=== PATIENT | male | born 1950 | race Hispanic/Latino ===

== ENCOUNTER 2017-10-24 09:28 | Emergency (ER) | payer MEDICARE, MEDICAID ==
[~2017-10-24] VITALS: Ht 157.5 cm; Wt 70.0 kg
[~2017-10-24 09:28] MED LIST: AMOXICILLIN500 MG OR; CIPROFLOXACN500 MG PO; DILAUDID 2MG2 MG/TA1 PO; DILAUDID 2MG2 MG/TAB PO; FLOMAX0.4 M1 PO; HYTRIN2 MG PO; KEFLEX250 MG PO; LORTAB 5/3255 MG PO; MIRALAX3350 NF PO; NO HOME MEDS; PHOSLO667 M1 PO; PROCARDIA XL90 MG PO; RENA-VIT1 PO; RENAL PO; SALINE NASAL0.65 %; TESSALON PER100 MG PO; VITAMIN D2000 UNI1 PO; ZOFRAN ODT4 MG PO; ZPAK PO
[2017-10-24] MEDS ORDERED: RENVELA2.4 GM PO (09:56)
[2017-10-24] MEDS ORDERED: SENSIPAR30 MG PO (09:57)
[2017-10-24 10:11] LABS: HEMATOCRIT 35.8 % (39.0-50.0); HEMOGLOBIN 12.3 g/dl (14.0-18.0); IMMATURE GRANULOCYTES 0.7 % (0.0-5.0); MEAN CORPUSCULAR HGB 31.9 pG CALC (26.0-32.0); MEAN CORPUSCULAR HGB CONC 34.4 g/L CALC (32.0-36.0); NEUT# 3.94 thou/uL (1.82-7.42); RED BLOOD COUNT 3.85 mill/uL (4.70-6.10); RED CELL DISTRI WIDTH 12.7 % (11.5-15.5)
[2017-10-24 10:19] LABS: ALBUMIN 4.2 g/dL (3.2-5.0); ALKALINE PHOSPHATASE 73 u/l (38-126); ANION GAP 19 (6-22 (CALC)); BILIRUBIN, TOTAL 0.9 mg/dL (0.0-1.4); BUN 34 mg/dL (8-23); CARBON DIOXIDE 25 mmol/l (22-30); CHLORIDE 99 mmol/l (95-108); SGOT/AST 12 u/l (19-48); SGPT/ALT 17 u/l (11-66); SODIUM 138 mmol/l (137-146)
[2017-10-24 10:27] LABS: BUN/CREATININE RATIO 4 (12-20 (CALC)); CREATININE 7.6 mg/dL (0.7-1.3); GFR 7 ML/MIN (>=60 (CALC)); GFR FOR AFR.AMER. 9 ML/MIN (>=60 (CALC)); POTASSIUM 4.8 mmol/l (3.5-5.1)
[2017-10-24 10:38] LABS: MYOGLOBIN 133 ng/mL (0 - 121)
[2017-10-24] MEDS ORDERED: ZOFRAN ODT4 MG PO (10:50)
[2017-10-24] MEDS ORDERED: ANTIVERT PO (10:50)
[2017-10-24 10:59] VITALS: BP 143/65
== END 2017-10-24 11:10 | disposition home or self-care (01) ==
LOC: ED 09:28
PROVIDERS: Emergency Medicine
DX: R42 Dizziness and giddiness (principal); R00.1 Bradycardia, unspecified; I12.0 Hypertensive chronic kidney disease with stage 5 chronic kidney disease or end stage renal disease; N18.6 End stage renal disease; Z99.2 Dependence on renal dialysis

== ENCOUNTER 2018-04-05 08:58 | Emergency (ER) | payer MEDICARE, MEDICAID ==
[~2018-04-05] VITALS: Ht 157.5 cm; Wt 70.0 kg
[~2018-04-05 08:58] MED LIST changes: +ANTIVERT PO; +RENVELA2.4 GM PO; +SENSIPAR30 MG PO
[2018-04-05] MEDS ORDERED: SENSIPAR30 MG PO (09:22)
[2018-04-05] MEDS ORDERED: RENVELA800 MG PO (09:24)
[2018-04-05] MEDS ORDERED: CLEOCIN150 MG PO (09:46)
[2018-04-05 10:11] VITALS: BP 156/78
== END 2018-04-05 10:20 | disposition home or self-care (01) ==
LOC: ED 08:58
PROC: 0H96XZZ Drainage of Back Skin, External Approach (ICD-10-PCS; principal; 2018-04-05)
DX: L02.222 Furuncle of back [any part, except buttock and flank] (principal)

== ENCOUNTER 2018-04-08 14:41 | Emergency (ER) | payer MEDICARE, MEDICAID ==
[~2018-04-08] VITALS: Ht 157.5 cm; Wt 68.2 kg
[~2018-04-08 14:41] MED LIST changes: +CLEOCIN150 MG PO; +RENVELA800 MG PO
[2018-04-08 15:18] VITALS: BP 132/74
== END 2018-04-08 15:18 | disposition home or self-care (01) ==
LOC: ED 14:41
DX: Z48.01 Encounter for change or removal of surgical wound dressing (principal)

== ENCOUNTER 2018-04-11 14:16 | Emergency (ER) | payer MEDICARE, MEDICAID ==
[~2018-04-11] VITALS: Ht 157.5 cm; Wt 78.0 kg
[2018-04-11 16:00] VITALS: BP 144/76
== END 2018-04-11 15:37 | disposition home or self-care (01) ==
LOC: ED 14:16
DX: Z48.01 Encounter for change or removal of surgical wound dressing (principal); I10 Essential (primary) hypertension

== ENCOUNTER 2018-04-14 08:42 | Emergency (ER) | payer MEDICARE, MEDICAID ==
[~2018-04-14] VITALS: Ht 157.5 cm; Wt 65.0 kg
[2018-04-14 09:24] VITALS: BP 138/67
== END 2018-04-14 09:24 | disposition home or self-care (01) ==
LOC: ED 08:42
DX: Z48.01 Encounter for change or removal of surgical wound dressing (principal); I10 Essential (primary) hypertension

== ENCOUNTER 2018-11-23 09:37 | Emergency (ER) | payer MEDICARE, MEDICAID ==
[~2018-11-23] VITALS: Ht 157.5 cm; Wt 67.0 kg
[2018-11-23 10:05] LABS: IMMATURE GRANULOCYTES 0.5 % (0.0-5.0); MEAN CORPUSCULAR HGB 31.9 pG CALC (26.0-32.0); NEUT# 5.28 thou/uL (1.82-7.42); RED BLOOD COUNT 2.82 mill/uL (4.70-6.10); RED CELL DISTRI WIDTH 12.5 % (11.5-15.5)
[2018-11-23 10:12] LABS: HEMATOCRIT 26.5 % (39.0-50.0)
[2018-11-23] MEDS ORDERED: VITAMIN D31000 UNI1 PO (10:31)
[2018-11-23 10:33] LABS: POTASSIUM 4.5 mmol/l (3.5-5.1); TOTAL PROTEIN 6.4 g/dL (6.3-8.2)
[2018-11-23 11:04] LABS: BILIRUBIN, TOTAL 0.4 mg/dL (0.0-1.4)
[2018-11-23 11:05] LABS: CREATININE 8.1 mg/dL (0.7-1.3)
[2018-11-23 11:54] VITALS: BP 117/59
[2018-11-23] MEDS ORDERED: PEPCID20 MG PO (20:25)
== END 2018-11-23 11:54 | disposition home or self-care (01) ==
LOC: ED 09:37
PROVIDERS: Family Medicine
DX: R06.02 Shortness of breath (principal); I95.1 Orthostatic hypotension; K29.70 Gastritis, unspecified, without bleeding; R55 Syncope and collapse; R07.9 Chest pain, unspecified; R42 Dizziness and giddiness; R51 Headache; M54.2 Cervicalgia; I12.0 Hypertensive chronic kidney disease with stage 5 chronic kidney disease or end stage renal disease; N18.6 End stage renal disease; Z99.2 Dependence on renal dialysis; R94.31 Abnormal electrocardiogram [ECG] [EKG]; R10.13 Epigastric pain; Y92.538 Other ambulatory health services establishments as the place of occurrence of the external cause

== ENCOUNTER 2018-11-23 17:16 | Emergency (ER) | payer MEDICARE, MEDICAID ==
[~2018-11-23] VITALS: Ht 157.5 cm; Wt 67.0 kg
[~2018-11-23 17:16] MED LIST changes: +VITAMIN D31000 UNI1 PO
[2018-11-23 17:54] LABS: HEMATOCRIT 21.2 % (39.0-50.0); HEMOGLOBIN 7.2 g/dl (14.0-18.0); IMMATURE GRANULOCYTES 0.6 % (0.0-5.0); MEAN CELL VOLUME 93.4 fL CALC (80.0-100.0); MEAN CORPUSCULAR HGB 31.7 pG CALC (26.0-32.0); NEUT# 5.29 thou/uL (1.82-7.42); RED BLOOD COUNT 2.27 mill/uL (4.70-6.10); RED CELL DISTRI WIDTH 12.6 % (11.5-15.5)
[2018-11-23 18:13] LABS: ALBUMIN 3.3 g/dL (3.2-5.0); BILIRUBIN, TOTAL 0.5 mg/dL (0.0-1.4); TOTAL PROTEIN 5.6 g/dL (6.3-8.2)
[2018-11-23 18:21] LABS: CREATININE 3.5 mg/dL (0.7-1.3)
[2018-11-23] MEDS ORDERED: PEPCID20 MG PO (20:25)
[2018-11-23 21:38] VITALS: BP 118/58
== END 2018-11-23 20:54 | disposition home or self-care (01) ==
LOC: ED 17:16
PROVIDERS: Family Medicine
DX: I95.1 Orthostatic hypotension (principal); K29.70 Gastritis, unspecified, without bleeding; R55 Syncope and collapse; I12.0 Hypertensive chronic kidney disease with stage 5 chronic kidney disease or end stage renal disease; N18.6 End stage renal disease; Z99.2 Dependence on renal dialysis; R07.9 Chest pain, unspecified; R42 Dizziness and giddiness; R51 Headache; M54.2 Cervicalgia; R94.31 Abnormal electrocardiogram [ECG] [EKG]; R10.13 Epigastric pain; Y92.538 Other ambulatory health services establishments as the place of occurrence of the external cause

== ENCOUNTER 2018-11-25 08:39 | Emergency (ER) | payer MEDICARE, MEDICAID ==
[~2018-11-25] VITALS: Ht 157.5 cm; Wt 70.0 kg
[~2018-11-25 08:39] MED LIST changes: +PEPCID20 MG PO
[2018-11-25 09:23] LABS: IMMATURE GRANULOCYTES 0.5 % (0.0-5.0); MEAN CORPUSCULAR HGB 32.6 pG CALC (26.0-32.0); MEAN CORPUSCULAR HGB CONC 33.9 g/L CALC (32.0-36.0); NEUT# 4.4 thou/uL (1.82-7.42); RED BLOOD COUNT 1.75 mill/uL (4.70-6.10); RED CELL DISTRI WIDTH 12.9 % (11.5-15.5)
[2018-11-25 09:30] LABS: POTASSIUM 4.7 mmol/l (3.5-5.1)
[2018-11-25 09:36] LABS: CREATININE 7.3 mg/dL (0.7-1.3)
[2018-11-25 09:44] LABS: HEMATOCRIT 16.8 % (39.0-50.0); HEMOGLOBIN 5.7 g/dl (14.0-18.0)
[2018-11-25 10:15] VITALS: BP 123/58
[2018-11-25 10:30] VITALS: BP 122/58
[2018-11-25] MEDS ORDERED: SENSIPAR30 MG PO (10:58)
[2018-11-25] MEDS ORDERED: CLARITIN10 M2 PO (10:59)
[2018-11-25 11:15] VITALS: BP 139/63
[2018-11-25 11:40] VITALS: BP 129/66; BP 129/68
== END 2018-11-25 11:40 ==
LOC: ED 08:39
PROVIDERS: Family Medicine
PROC: 30233N1 Transfusion of Nonautologous Red Blood Cells into Peripheral Vein, Percutaneous Approach (ICD-10-PCS; principal; 2018-11-25)
DX: R07.9 Chest pain, unspecified (principal); R19.5 Other fecal abnormalities; I12.0 Hypertensive chronic kidney disease with stage 5 chronic kidney disease or end stage renal disease; N18.6 End stage renal disease; Z99.2 Dependence on renal dialysis
CPT/HCPCS: P9016; S0164